=== PATIENT | male | born 1980 | race American Indian/Alaskan Native ===

== ENCOUNTER 2023-07-04 23:47 | Emergency (ER) | payer OTHER ==
[2023-07-05] MEDS ORDERED: Ketorolac 30 MG/ML SDV IM ONE (00:02)
[2023-07-05 00:12] VITALS: BP 186/124; PULSE 102
[2023-07-05] MEDS: Ibuprofen 600 MG Tab PO ONE (00:20)
== END 2023-07-05 00:24 | disposition home or self-care (01) ==
LOC: DL.ED 23:47
DX: M10.9 Gout, unspecified (principal); I10 Essential (primary) hypertension
CPT/HCPCS: 99282; 99283; A9270

== ENCOUNTER 2024-08-29 21:50 | Emergency (ER) | payer OTHER ==
[2024-08-29] MEDS: Take Home: predniSONE 20 MG, 4 Tab Pack PO ONE (22:21)
[2024-08-29 22:26] VITALS: BP 165/90; PULSE 72
== END 2024-08-29 22:24 | disposition home or self-care (01) ==
LOC: DL.ED 21:50
DX: M10.9 Gout, unspecified (principal); I10 Essential (primary) hypertension
CPT/HCPCS: 82947; 99283; 99284; A9270